=== PATIENT | female | born 1965 | race Caucasian/White ===

== ENCOUNTER 2016-12-28 14:16 | Emergency (ER) | payer OTHER ==
[2016-12-28 14:21] VITALS: BP 170/88; PULSE 79; RESP 18; TEMP 98.1; O2SAT 83
--- NOTE | 2016-12-28 14:39 | EDPHY ---
HPI/HX/ROS/PE/MDM Narrative: CHIEF COMPLAINT: Something in right eye HPI: This patient is a 51 year old female with history of Sjogren's syndrome complaining of right eye irritation secondary to a possible foreign body. Yesterday, she felt irritation in her eye and this morning, pulled out a long cat hair. Today, she was driving to [employer] from [place] with her windows down, and felt sudden irritation and pain in the same eye. She suspects another foreign body may be present. She attempted to wash her eye with saline solution , but feels this may have agitated her eye more. She has a history of eye infections and corneal ulcer secondary to her Sjogren's syndrome. She denies recent illness. No fever, chills, or other associated symptoms. REVIEW OF SYSTEMS: Aside from elements discussed in the HPI, a comprehensive 10-point review of systems was reviewed and is negative. PMH: Rheumatoid arthritis. Sjogren's Syndrome. SOCIAL HISTORY: Lives in [place]. Single. Works as a teacher. PHYSICAL EXAM: General: Patient is alert, in no acute distress. Right eye: Two corneal abrasions are present at the 12 o'clock and 3 o'clock position. No streaming. Anterior chamber is clear. Pupil round reactive to light. Diffuse scleral irritation and erythema. Neuro: Oriented x3. Normal motor function. Normal sensory function. Portions of this note were transcribed by an ED scribe. I personally performed the history, physical exam, and medical decision making; and confirm the accuracy of the information in the transcribed note. ED Course: 51 year old female presents with right eye irritation. Physical exam reveals two corneal abrasions are present at the 12 o'clock and 3 o'clock position, diffuse scleral irritation and erythema. Plan to discharge home in good condition with prescription for TobraDex eye ointment. She understands she needs to follow up with her log carrier operator tomorrow without fail. I referred her to the tank car cleaner extrusion die template maker as well. Return precautions discussed. The patient is comfortable with this plan. MDM: This patient presents with fairly significant corneal disruption from likely foreign body or possible corneal ulcer. I see no signs of globe disruption or anterior chamber issue. The patient requested tobradex ointment and will follow up with her administrative services specialist in the morning. She does not want us to consult our tank car cleaner. I see no signs of hyphema, glaucoma, globe disruption. - Data Points Medications Given: Discontinued Medications Fluorescein Sodium ([id number]-H-[id number]) 1 mg OP EDNOW ONE Stop: 12/28/16 14:44 Last Admin: 12/28/16 14:47 Dose: 1 mg Proparacaine HCl (Alcaine 0.5%) 1 drops RTEYE ONCE ONE Stop: 12/28/16 14:43 Last Admin: 12/28/16 14:47 Dose: 1 drop General Time Seen by Provider: 12/28/16 14:38 Initial Vital Signs: Initial Vital Signs Temperature (C) 36.7 C 12/28/16 14:17 Heart Rate 79 12/28/16 14:17 Respiratory Rate 18 12/28/16 14:17 Blood Pressure 170/88 H 12/28/16 14:17 O2 Sat (%) 83 L 12/28/16 14:17 O2 Delivery Mode Room Air Allergies/Adverse Reactions: diphenhydramine HCl [From Benadryl] Allergy (Verified 01/12/13 15:12) erythromycin lactobionate [From Erythrocin] Allergy (Verified 01/12/13 15:12) epinepherine Allergy (Uncoded 01/12/13 15:12) Home Medications: Medication Instructions Recorded Albuterol [Proventil Inhaler HFA 1 - 2 puffs IH Q4PRN PRN #1 mdi 01/12/13 (*)] Embrel 01/12/13 Levothyroxine [Synthroid 112 mcg 01/12/13 (*)] Zaleplon [Sonata] 10 mg PO HS PRN #20 tab 01/12/13 Tobramycin/Dexamethasone [Tobradex 3.5 gm OP Q6H 7 Days 12/28/16 Eye Ointment] Departure - Departure Disposition: Home, Routine, Self-Care Clinical Impression: Corneal abrasion, Corneal ulcer Condition: Good Instructions: Corneal Abrasion (ED), Corneal Ulcer (ED) Additional Instructions: 1. Follow up with your log carrier operator tomorrow without fail. We have referred you to our tank car cleaner extrusion die template maker as well if needed. 2. Use your antibiotic ointment as prescribed. 3. Return to the emergency department for increased pain, changes in vision, discharge, or other worsening of condition. Referrals: Liana Segovia MD [Primary Care Provider] - As per Instructions Brittanie Cadena MD [Non Staff Provider ()] - As per Instructions Prescriptions: Tobramycin/Dexamethasone [Tobradex Eye Ointment] 3.5 gm OP Q6H 7 Days Report Scribed for: Keanu Yang Report Scribed by: Angy Amos Date of Report: 12/28/16 Time of Report: 14:39
[2016-12-28] MEDS ORDERED: PROPARACAINE 0.5% 15 ML OPHT DROP RTEYE ONE (14:42)
[2016-12-28] MEDS ORDERED: FLUORESCEIN SODIUM 1 MG STRIP OP ONE (14:43)
== END 2016-12-28 15:29 | disposition home or self-care (01) ==
DX: S05.01XA Injury of conjunctiva and corneal abrasion without foreign body, right eye, initial encounter (principal); H16.001 Unspecified corneal ulcer, right eye; X58.XXXA Exposure to other specified factors, initial encounter

== ENCOUNTER → 2018-05-13 | Outpatient (CLI) | payer OTHER | LOC: BMCIMAGING 16:38 | PROVIDERS: ATTEND Internal Medicine Rheumatology | DX: M05.89 Other rheumatoid arthritis with rheumatoid factor of multiple sites (principal); M85.841 Other specified disorders of bone density and structure, right hand; M85.842 Other specified disorders of bone density and structure, left hand; M19.071 Primary osteoarthritis, right ankle and foot; M19.072 Primary osteoarthritis, left ankle and foot; M20.11 Hallux valgus (acquired), right foot; M20.12 Hallux valgus (acquired), left foot ==